=== PATIENT | female | born 1990 | race Caucasian/White ===

== ENCOUNTER 2023-11-29 12:51 | Emergency (ER) | payer MEDICAID ==
[~2023-11-29] VITALS: Ht 167.6 cm; Wt 80.0 kg
[2023-11-29] MEDS ORDERED: GABAPENTIN 300 MG CAP PO ONE (13:15)
[2023-11-29] MEDS ORDERED: KETOROLAC TROMETHAMINE 30 MG/ML VIAL IM ONE (13:15)
[2023-11-29] MEDS ORDERED: CYCLOBENZAPRINE HCL 10 MG TAB PO ONE (13:15)
[2023-11-29 13:22] LABS: BILIRUBIN, URINE NEGATIVE (negative); BLOOD/HGB, URINE NEGATIVE (Negative); KETONE, URINE >=80 (Negative); LEUK ESTERASE, URINE SMALL (negative); NITRITE, URINE NEGATIVE (negative)
[2023-11-29 13:33] LABS: RED BLOOD CELLS, URINE 0-1 /hpf (0-5)
[2023-11-29 13:34] LABS: BACTERIA, URINE 1+ /hpf (negative); CASTS, URINE NONE SEEN \\lpf; COLLECTION TYPE, URINE CLEAN CATCH; CRYSTALS, URINE NONE SEEN (0-1+); EPITHELIAL CELLS, URINE SQUAMOUS 4+ /lpf (0-1+); REFLEX CULTURE, URINE No (No)
[2023-11-29] MEDS ORDERED: NEURONTIN300 MG PO (13:53)
[2023-11-29] MEDS ORDERED: CYCLOBENZAPRINE10 MG PO (13:53)
[2023-11-29 13:59] VITALS: BP 135/83
--- OUTSIDE RECORDS SUMMARY | 2023-11-29 14:18 | XMS ---
PreManage Notification: RAHUL MOORE Security Implementation Project Coordinator Events No recent Security Events currently on file [facility] There are no care providers on record at this time. [facility] has no Care Guidelines for this patient. Zoran VISIT COUNT (12 MO.) 1 RACHELL Pérez TOTAL 1 NOTE: Visits indicate total known visits. ED/UCC VISIT TRACKING (12 MO.) 11/29/2023 12:52 RACHELL Gomez OR TYPE: Emergency COMPLAINT: - POSS UTI INPATIENT VISIT TRACKING (12 MO.) No inpatient visits to display in this time frame [email or web address]
== END 2023-11-29 14:00 | disposition home or self-care (01) ==
LOC: ED 12:51
PROVIDERS: Emergency Medicine
DX: M54.50 Low back pain, unspecified (principal); R82.998 Other abnormal findings in urine
CPT/HCPCS: 81001; 84703; 96372; 99283; A9270; J1885